=== PATIENT | male | born 1935 | race Caucasian/White ===

== ENCOUNTER 2017-09-04 18:21 | Emergency (ER) | payer MEDICARE ==
[~2017-09-04] VITALS: Ht 175.3 cm; Wt 68.0 kg
[~2017-09-04 18:21] MED LIST: ASPI81EC PO; Bactrim Ds Tab1 EACH PO; CEPH500 PO; CLOP75 PO; ELIQUIS5 MG PO; HYDCHL12.5 PO; KETO10 PO; Keflex500 MG PO; METO25ER PO; OMEPRAZOLE; OXYACE5T PO; RXHYDMOR2 PO; RXOXYACE PO; SIMV40 PO; TAMS.4ER PO
[2017-09-04 19:06] LABS: BASOPHILS ABSOLUTE AUTO 0.05 K/mm3 (0.00-0.23); BASOPHILS PERCENT AUTO 1 % (0-2); EOSINOPHILS ABSOLUTE AUTO 0.27 K/mm3 (0.00-0.68); EOSINOPHILS PERCENT AUTO 3 % (0-6); Hematocrit 40.2 % (37.0-53.0); Hemoglobin 13.2 g/dL (13.5-17.5); IMMATURE GRAN ABSOLUTE AUTO 0.02 K/mm3 (0.00-0.10); IMMATURE GRAN PERCENT AUTO 0 % (0-1); LYMPHOCYTES PERCENT AUTO 11 % (21-46); MONOCYTES ABSOLUTE AUTO 0.73 K/mm3 (0.16-1.47); MONOCYTES PERCENT AUTO 7 % (4-13); Mean Corpuscular HGB 32.4 pg (26.0-34.0); Mean Corpuscular HGB Conc 32.8 g/dL (31.5-36.5); Mean Corpuscular Volume 99 fL (80-100); Mean Platelet Volume 10.4 fL (9.1-12.4); NEUTROPHILS ABSOLUTE AUTO 7.68 K/mm3 (1.96-9.15); NEUTROPHILS PERCENT AUTO 78 % (41-73); Platelet Count 190 K/mm3 (150-400); RDW Coefficient Variation 12.3 % (11.7-14.2); RDW Standard Deviation 44.6 fL (35.1-46.3); Red Blood Cell Count 4.08 M/mm3 (4.30-5.90); White Blood Cell Count 9.85 K/mm3 (4.00-11.30)
[2017-09-04 19:27] LABS: Albumin/Globulin Ratio 1.2 (0.8-1.8); Bilirubin, Total 0.5 mg/dL (0.1-1.0); Bun/Creatinine Ratio 16.4 (12.0-20.0); Calcium, Blood 8.9 mg/dL (8.5-10.1); Creatinine, Blood 1.28 mg/dL (0.60-1.20); Globulin, Blood 3.2 g/dL (2.2-4.0); Potassium, Blood 4.3 mmol/L (3.5-5.5); Total Protein, Blood 7.2 g/dL (6.4-8.2)
[2017-09-04] MEDS ORDERED: LOSA50 PO (19:55)
[2017-09-04] MEDS ORDERED: Amlodipine Bes2.5 MG PO (19:55)
[2017-09-04] MEDS ORDERED: Percocet 5-3251 EACH PO (21:54)
== END 2017-09-04 22:08 | disposition home or self-care (01) ==
LOC: ER 18:21
PROVIDERS: Emergency Medicine
DX: N13.2 Hydronephrosis with renal and ureteral calculous obstruction (principal); I10 Essential (primary) hypertension; T45.515A Adverse effect of anticoagulants, initial encounter; Z88.8 Allergy status to other drugs, medicaments and biological substances; Z79.899 Other long term (current) drug therapy; I48.91 Unspecified atrial fibrillation; Z79.01 Long term (current) use of anticoagulants
CPT/HCPCS: 36415; 74176; 80053; 81000; 85025; 96361; 96374; 96375; 96376; 99284; J2405; J3010; J7030

== ENCOUNTER → 2018-03-09 | Outpatient (CLI) | payer MEDICARE ==
[~2018-03-09] MED LIST changes: +Amlodipine Bes2.5 MG PO; +LOSA50 PO; +Percocet 5-3251 EACH PO
== END | disposition home or self-care (01) ==
LOC: PLD 14:01 → LAB SHORT 14:01
DX: C44.222 Squamous cell carcinoma of skin of right ear and external auricular canal (principal)
CPT/HCPCS: 88305

== ENCOUNTER → 2019-12-08 | Outpatient (CLI) | payer MEDICARE | END | disposition home or self-care (01) | LOC: LAB SHORT 08:19 → PLD 08:19 | DX: D48.5 Neoplasm of uncertain behavior of skin (principal) | CPT/HCPCS: 88305 ==

== ENCOUNTER → 2020-09-07 | Outpatient (CLI) | payer MEDICARE | LOC: LAB SHORT 11:55 → PLD 11:55 | DX: D48.5 Neoplasm of uncertain behavior of skin (principal); L82.1 Other seborrheic keratosis | CPT/HCPCS: 88305 ==

== ENCOUNTER → 2022-01-30 | Outpatient (CLI) | payer MEDICARE | END | disposition home or self-care (01) | LOC: LAB SHORT 11:11 → PLD 11:11 | DX: L83 Acanthosis nigricans (principal); L57.8 Other skin changes due to chronic exposure to nonionizing radiation; L57.0 Actinic keratosis | CPT/HCPCS: 88305 ==

== ENCOUNTER 2022-05-17 16:28 | Emergency (ER) | payer MEDICARE ==
[~2022-05-17] VITALS: Ht 172.7 cm; Wt 68.0 kg
[2022-05-17 17:11] LABS: BASOPHILS ABSOLUTE AUTO 0.03 K/mm3 (0.00-0.23); BASOPHILS PERCENT AUTO 0 % (0-2); EOSINOPHILS ABSOLUTE AUTO 0.06 K/mm3 (0.00-0.68); EOSINOPHILS PERCENT AUTO 1 % (0-6); Hematocrit 43.6 % (37.0-53.0); Hemoglobin 14.8 g/dL (13.5-17.5); IMMATURE GRAN ABSOLUTE AUTO 0.03 K/mm3 (0.00-0.10); IMMATURE GRAN PERCENT AUTO 0 % (0-1); LYMPHOCYTES PERCENT AUTO 8 % (21-46); MONOCYTES ABSOLUTE AUTO 0.74 K/mm3 (0.16-1.47); MONOCYTES PERCENT AUTO 7 % (4-13); Mean Corpuscular HGB 33.6 pg (26.0-34.0); Mean Corpuscular HGB Conc 33.9 g/dL (31.5-36.5); Mean Corpuscular Volume 99 fL (80-100); Mean Platelet Volume 10.8 fL (9.1-12.4); NEUTROPHILS PERCENT AUTO 84 % (41-73); Platelet Count 222 K/mm3 (150-400); RDW Coefficient Variation 12.5 % (11.7-14.2); RDW Standard Deviation 45.9 fL (35.1-46.3); Red Blood Cell Count 4.41 M/mm3 (4.30-5.90); White Blood Cell Count 10.66 K/mm3 (4.00-11.30)
[2022-05-17 17:17] LABS: Albumin/Globulin Ratio 1.1 (0.8-1.8); Bilirubin, Total 0.9 mg/dL (0.1-1.0); Bun/Creatinine Ratio 17.2 (12.0-20.0); Calcium, Blood 9.6 mg/dL (8.5-10.1); Creatinine, Blood 0.93 mg/dL (0.60-1.20); Globulin, Blood 3.5 g/dL (2.2-4.0); Potassium, Blood 4.3 mmol/L (3.5-5.5); Total Protein, Blood 7.5 g/dL (6.4-8.2)
[2022-05-17] MEDS ORDERED: AZIT250 PO (20:16)
== END 2022-05-17 20:52 | disposition home or self-care (01) ==
LOC: ER 16:28
PROVIDERS: Physician Assistant
DX: J18.9 Pneumonia, unspecified organism (principal); R07.9 Chest pain, unspecified; Z88.8 Allergy status to other drugs, medicaments and biological substances; Z79.899 Other long term (current) drug therapy; I48.91 Unspecified atrial fibrillation; I10 Essential (primary) hypertension
CPT/HCPCS: 36415; 71045; 80053; 83880; 84484; 85025; A9270

== ENCOUNTER 2022-08-30 14:22 | Observation (INO) | payer MEDICARE ==
[~2022-08-30] VITALS: Ht 175.3 cm; Wt 68.0 kg
[~2022-08-30 14:22] MED LIST changes: +AZIT250 PO; -SIMV40 PO; +ZOCOR20 MG PO
[2022-08-30 15:06] LABS: BASOPHILS ABSOLUTE AUTO 0.05 K/mm3 (0.00-0.23); BASOPHILS PERCENT AUTO 0 % (0-2); EOSINOPHILS ABSOLUTE AUTO 0.09 K/mm3 (0.00-0.68); EOSINOPHILS PERCENT AUTO 1 % (0-6); Hematocrit 42.3 % (37.0-53.0); IMMATURE GRAN ABSOLUTE AUTO 0.03 K/mm3 (0.00-0.10); IMMATURE GRAN PERCENT AUTO 0 % (0-1); LYMPHOCYTES ABSOLUTE AUTO 0.76 K/mm3 (0.84-5.20); LYMPHOCYTES PERCENT AUTO 6 % (21-46); MONOCYTES ABSOLUTE AUTO 0.58 K/mm3 (0.16-1.47); MONOCYTES PERCENT AUTO 5 % (4-13); Mean Corpuscular HGB 32.5 pg (26.0-34.0); Mean Corpuscular HGB Conc 33.1 g/dL (31.5-36.5); Mean Corpuscular Volume 98 fL (80-100); Mean Platelet Volume 10.2 fL (9.1-12.4); NEUTROPHILS ABSOLUTE AUTO 10.37 K/mm3 (1.96-9.15); NEUTROPHILS PERCENT AUTO 87 % (41-73); Platelet Count 292 K/mm3 (150-400); RDW Coefficient Variation 12.6 % (11.7-14.2); RDW Standard Deviation 45.1 fL (35.1-46.3); Red Blood Cell Count 4.31 M/mm3 (4.30-5.90); White Blood Cell Count 11.88 K/mm3 (4.00-11.30)
[2022-08-30 15:28] LABS: Albumin, Blood 4.1 g/dL (3.4-5.0); Albumin/Globulin Ratio 1.2 (0.8-1.8); Bilirubin, Total 0.4 mg/dL (0.1-1.0); Bun/Creatinine Ratio 26.3 (12.0-20.0); Calcium, Blood 9.3 mg/dL (8.5-10.1); Creatinine, Blood 0.84 mg/dL (0.60-1.20); Globulin, Blood 3.4 g/dL (2.2-4.0); Potassium, Blood 4.2 mmol/L (3.5-5.5); Total Protein, Blood 7.5 g/dL (6.4-8.2)
[2022-08-30] MEDS ORDERED: OMEP20ER PO (16:32)
[2022-08-30 17:27] LABS: Source, Urine Clean Catch
[2022-08-30 17:43] LABS: Bilirubin, Urine Neg (Neg); Blood, Urine 4+ (Neg); Color, Urine Yellow (P-Yellow); Glucose Qualitative, Urine Neg (Neg); Ketones, Urine Neg (Neg); Leukocyte Esterase, Urine Neg (Neg); Nitrite, Urine Neg (Neg); Protein, Urine 2+ (Neg); Urobilinogen, Urine NORM (Normal)
[2022-08-30 17:57] LABS: Appearance, Urine Hazy (Clear)
[2022-08-30 18:02] LABS: Squamous Epithelial Cells Rare /hpf (Few)
[2022-08-30 18:03] LABS: Bacteria Few /hpf; Red Blood Cells, Urine 25-50 /hpf (0-2); White Blood Cells, Urine 0-2 /hpf (0-5)
--- NOTE | 2022-08-30 20:16 | NUR ---
NEW ADMIT PT ARRIVED FROM ER ROUGHLY 2002, SBY TRANSFER TO 224 BED. ADMITTED FOR ABD PAIN/CHOLECYSTITIS. PT ORIENTED TO & CALL LIGHT. WILL MONITOR.
[2022-08-31 04:55] LABS: BASOPHILS ABSOLUTE AUTO 0.03 K/mm3 (0.00-0.23); BASOPHILS PERCENT AUTO 0 % (0-2); EOSINOPHILS ABSOLUTE AUTO 0.06 K/mm3 (0.00-0.68); EOSINOPHILS PERCENT AUTO 1 % (0-6); Hematocrit 39.3 % (37.0-53.0); Hemoglobin 13.2 g/dL (13.5-17.5); IMMATURE GRAN ABSOLUTE AUTO 0.04 K/mm3 (0.00-0.10); IMMATURE GRAN PERCENT AUTO 0 % (0-1); LYMPHOCYTES ABSOLUTE AUTO 0.86 K/mm3 (0.84-5.20); LYMPHOCYTES PERCENT AUTO 8 % (21-46); MONOCYTES ABSOLUTE AUTO 0.87 K/mm3 (0.16-1.47); MONOCYTES PERCENT AUTO 8 % (4-13); Mean Corpuscular HGB 32.4 pg (26.0-34.0); Mean Corpuscular HGB Conc 33.6 g/dL (31.5-36.5); Mean Corpuscular Volume 97 fL (80-100); Mean Platelet Volume 10.3 fL (9.1-12.4); NEUTROPHILS ABSOLUTE AUTO 8.76 K/mm3 (1.96-9.15); NEUTROPHILS PERCENT AUTO 82 % (41-73); Platelet Count 250 K/mm3 (150-400); RDW Coefficient Variation 12.6 % (11.7-14.2); RDW Standard Deviation 45.1 fL (35.1-46.3); Red Blood Cell Count 4.07 M/mm3 (4.30-5.90); White Blood Cell Count 10.62 K/mm3 (4.00-11.30)
--- NOTE | 2022-08-31 05:36 | NUR ---
SHIFT SUMMARY AOX4. VERY [place], DOESNT HAVE HEARING AIDS WITH HIM, @BEDSIDE TO HELP c COMMUNICATION. VSS. REPORTS RUQ ABD PAIN RAIDIATING TO R UPPER BACK, MEDICATED 1x c TORADOL & PT ABLE TO REST COMFORTABLY AFTER. DENIES N/V. TOLERATED WATER BEFORE MIDNIGHT. HAS BEEN NPO FOR POSSIBLE LAP BENOIT TODAY. IND c URINAL & TRANSFER. CALL LIGHT IN REACH & PT ABLE TO MAKE NEEDS KNOWN.
[2022-08-31 05:37] LABS: Albumin, Blood 3.4 g/dL (3.4-5.0); Albumin/Globulin Ratio 1.1 (0.8-1.8); Bilirubin, Total 0.6 mg/dL (0.1-1.0); Bun/Creatinine Ratio 21.1 (12.0-20.0); Calcium, Blood 8.7 mg/dL (8.5-10.1); Creatinine, Blood 0.81 mg/dL (0.60-1.20); Globulin, Blood 3.1 g/dL (2.2-4.0); Total Protein, Blood 6.5 g/dL (6.4-8.2)
--- NOTE | 2022-08-31 13:55 | NUR ---
PT BACK FROM SURGERY AT THIS TIME. DENIES PAIN, DENIES NAUSEA. LAP SITES X4 CDI. PT ON 2L NASAL CANULA. REPORTS FEELING VERY TIRED BUT DENIES OTHER NEEDS. SPOUSE AT BEDSIDE.
--- NOTE | 2022-08-31 14:00 | NUR ---
ASSUMED CARE OF PATIENT AT 1400. PATIENT RESTING IN BED, APPEARS VERY COMFORTABLE, DENIES PAIN. X4 LAP SITES TO ABDOMEN W/ GAUZE & TEGADERM, [facility] VSS ON 2L 02, WILL WEAN APPROPRIATE. CALL LIGHT IN REACH.
--- NOTE | 2022-08-31 17:29 | NUR ---
SHIFT SUMMARY NO ACUTE CHANGES SINCE ASSUMPTION OF CARE. WEANED PATIENT FROM O2, O2 SATS MAINTAINING >92% ON ROOM AIR. PATIENT DENIES PAIN. TOLERATING REGULAR PO DIET WELL. CALL LIGHT IN REACH, WILL REPORT TO ONCOMING RN AT 1900.
--- NOTE | 2022-09-01 04:26 | NUR ---
POD1 LAP BENOIT. DRESSINGS ARE C/D/I. BOTTOM RIGHT GAUZE SATURATED WITH SS FLUID, CHANGED DRESSING DURING AM VITALS. VSS. PT DID NOT SLEEP MUCH T/O THE NIGHT. MEDICATED FOR PAIN WITH NORCO AND TORADOL. PT HESITANT TO TAKE PAIN MEDICATION, EDUCATED T/O THE NIGHT ABOUT PROPER PAIN MANAGEMENT AND HEALING. PT ABLE TO AMBULATE TO THE BATHROOM AND VOID W/O DIFFICULTY. TOLLERATING PO INTAKE W.O N/V. NO ACUTE EVEMTS NOTED. PLAN FOR PT TO D/C TODAY. THE PATIENT IS RESTING IN BED, IN NO DISTESS, CALL LIGHT IN REACH
[2022-09-01] MEDS ORDERED: ACET325 PO (10:23)
--- NOTE | 2022-09-01 11:11 | NUR ---
DISCHARGE PT LEFT VIA WHEELCHAIR AT 1100. ALL BELONGINGS WITH PATIENT. INSTRUCTIONS GONE OVER WITH SPOUSE AND PATIENT. HE CONTINUES TO DENY PAIN. AMBULATING WELL IN ROOM. TOLERATING PO. DENIED NEED FOR PAIN MEDICATION.
== END 2022-09-01 11:13 | disposition home or self-care (01) ==
LOC: ER 14:22 → SURS 14:23
PROVIDERS: Physician Assistant; Student in an Organized Health Care Education/Training Program; Surgery; ADMIT Student in an Organized Health Care Education/Training Program
PROC: 0FT44ZZ Resection of Gallbladder, Percutaneous Endoscopic Approach (ICD-10-PCS; principal; 2022-08-31 11:15)
PROC: BF00YZZ Plain Radiography of Bile Ducts using Other Contrast (ICD-10-PCS; principal; 2022-08-31 11:15)
DX: K80.12 Calculus of gallbladder with acute and chronic cholecystitis without obstruction (principal); I48.20 Chronic atrial fibrillation, unspecified; I10 Essential (primary) hypertension; I25.10 Atherosclerotic heart disease of native coronary artery without angina pectoris; D64.9 Anemia, unspecified; Z95.1 Presence of aortocoronary bypass graft; Z88.8 Allergy status to other drugs, medicaments and biological substances; Z79.899 Other long term (current) drug therapy; Z79.01 Long term (current) use of anticoagulants
CPT/HCPCS: 36415; 74177; 74300; 76705; 80053; 81001; 83690; 85025; 93005; 93010; 96365; 96374; 96375; 96376; 99285-25; A9270; G0378; J0696; J1100; J1885; J2270; J2370; J2405; J2704; J2795; J3010; J7050; J7120; Q9967

== ENCOUNTER 2024-03-15 08:45 | Emergency (ER) | payer MEDICARE ==
[~2024-03-15] VITALS: Ht 172.7 cm; Wt 65.8 kg
[~2024-03-15 08:45] MED LIST changes: +ACET325 PO; +OMEP20ER PO
[2024-03-15 09:30] VITALS: BP 144/84
== END 2024-03-15 10:30 | disposition home or self-care (01) ==
LOC: ER 08:45
DX: S90.31XA Contusion of right foot, initial encounter (principal); X58.XXXA Exposure to other specified factors, initial encounter
CPT/HCPCS: 73630; 99283